=== PATIENT | male | born 1955 | race Asian ===

== ENCOUNTER 2021-03-29 10:33 | Emergency (ER) | payer MEDICARE, OTHER ==
--- NOTE | 2021-03-29 12:33 | ED Physician Documentation ---
PD HPI HEADACHE - Stated complaint Stated Complaint: headache - Chief complaint Chief Complaint: Neuro - History obtained from History obtained from: Patient - Additional information Additional information: Pt comes to the ED with CC of a sharp, shooting pain extending from the L skull base, up behind his L ear, and to the top of his head, since last night. The patient denies injury. He states that he has never had pain like this before. He states that he thinks something may be swollen behind his left ear. He denies any numbness or tingling in his extremities. No focal neurologic deficits of any kind. No visual changes. The patient does report intermittent ringing in his left ear. This seems to be associated with the pain. Review of Systems Ten Systems: 10 systems reviewed and negative Constitutional: reports: Reviewed and negative Eyes: reports: Reviewed and negative Ears: reports: Tinnitus/ringing Nose: reports: Reviewed and negative Throat: reports: Reviewed and negative Cardiac: reports: Reviewed and negative Respiratory: reports: Reviewed and negative GI: reports: Reviewed and negative : reports: Reviewed and negative Skin: reports: Reviewed and negative Musculoskeletal: reports: Reviewed and negative Neurologic: reports: Headache Psychiatric: reports: Reviewed and negative Endocrine: reports: Reviewed and negative Immunocompromised: reports: Reviewed and negative PD PAST MEDICAL HISTORY - Past Medical History Past Medical History: Yes Cardiovascular: None Respiratory: None Neuro: Tremors Endocrine/Autoimmune: None GI: GERD : None HEENT: None Psych: None Musculoskeletal: None Derm: None - Past Surgical History Past Surgical History: Yes General: Appendectomy - Present Medications Home Medications: Ambulatory Orders Medication Instructions Recorded Confirmed Gabapentin [Neurontin] 200 mg PO TID #15 cap 03/29/21 Omeprazole 40 mg PO DAILY 03/29/21 03/29/21 predniSONE [Deltasone] 60 mg PO DAILY 3 Days #9 tablet 03/29/21 - Allergies Allergies/Adverse Reactions: Allergies Allergy/AdvReac Type Severity Reaction Status Date / Time Sulfa (Sulfonamide Allergy Rash Verified 03/29/21 10:51 Antibiotics) sulfamethoxazole Allergy Rash Verified 03/29/21 10:51 [From ] trimethoprim [From ] Allergy Rash Verified 03/29/21 10:51 - Social History Does the pt smoke?: No Smoking Status: Former smoker Does the pt drink ETOH?: Yes Does the pt have substance abuse?: No - Immunizations Immunizations are current?: Yes PD ED PE NORMAL - Vitals Vital signs reviewed: Yes - General General: Alert and oriented X 3, No acute distress, Well developed/nourished - HEENT HEENT: Atraumatic, PERRL, EOMI, Moist mucous membranes, Other (Tenderness to palpation extending superiorly from the left skull base posteriorly up just posterior to the left ear and up toward the crown of the patient's head. Mild posterior auricular lymphadenopathy on the left. No deformity or contusion. No edema.) - Neck Neck: Supple, no meningeal sign, No bony TTP, Other (Tenderness over Origin of left neck paraspinal musculature at base of skull. No bony deformity. Musculature is somewhat tender extending inferiorly from the origin site.) - Cardiac Cardiac: RRR, No murmur - Respiratory Respiratory: Clear bilaterally - Abdomen Abdomen: Normal bowel sounds, Soft, Non tender, Non distended - Derm Derm: Warm and dry - Extremities Extremities: No deformity - Neuro Neuro: Alert and oriented X 3 - Psych Psych: Normal mood, Normal affect Results - Vitals Vitals: Oxygen O2 Source Room air PD MEDICAL DECISION MAKING - ED course Complexity details: considered differential, d/w patient ED course: The patient was extremely well-appearing and I did discuss with him that his symptoms seem to be more muscular in nature. There is no evidence of an intracranial process causing the symptoms. Patient has no neurologic findings and has specific tenderness in the area of pain on exam. We discussed the possibility of this being the early end of an episode of zoster, or could be musculoskeletal. We have discussed symptomatic management at home the usual indications for return. Patient may follow-up with his primary doctor. Departure - Departure Disposition: 01 Home, Self Care Clinical Impression: Neuralgia and neuritis Condition: Stable Instructions: Essential Tremor ET, ED Neuralgia Trigeminal Prescriptions: predniSONE [Deltasone] 60 mg PO DAILY 3 Days #9 tablet Gabapentin [Neurontin] 200 mg PO TID #15 cap Comments: Your symptoms and exam findings are consistent with an occipital neuralgia, usually caused by inflammation of the greater occipital nerve which comes up from the base of the skull and give sensation to the scalp above. This is similar to trigeminal neuralgia, except that it is a different nerve. In general, the nerve pain can be triggered by inflammation of other structures in the area, or can be malfunction of the nerve itself. On occasion, it can be a warning sign that you are about to have a shingles outbreak. Most of the time, the nerve pain will down on its own. We will give you some medicine to help decrease the excessive signaling in the nerve give you some relief from the pain. Please follow-up with your primary care physician if you are still having trouble with this after the next several days. Discharge Date/Time: 03/29/21 13:01
[2021-03-29 13:02] VITALS: BP 176/85
== END 2021-03-29 13:01 | disposition home or self-care (01) ==
LOC: ED 10:33
DX: M79.2 Neuralgia and neuritis, unspecified (principal); Z87.891 Personal history of nicotine dependence
CPT/HCPCS: 99282